=== PATIENT | male | born 1995 | race Caucasian/White ===

== ENCOUNTER 2019-03-03 11:22 | Emergency (ER) | payer MEDICAID, OTHER ==
[~2019-03-03] VITALS: Ht 175.3 cm; Wt 74.1 kg
[2019-03-03 11:32] VITALS: BP 136/64; Ht 175.3 cm; Wt 74.1 kg
[2019-03-03] MEDS ORDERED: ACETAMINOPHEN 500 MG TAB PO STA (12:37)
[2019-03-03] MEDS ORDERED: IBUP800T48 PO (14:11)
[2019-03-03] MEDS ORDERED: BUTA1CAP38 PO (14:11)
[2019-03-03] MEDS ORDERED: ONDA4TAB14 PO (14:13)
--- NOTE | 2019-03-03 14:17 | ERD ---
ER Documentation Chief Complaint Chief Complaint "THIS IS MY 3RD MIGRAINE IN 12 HOURS" - HX MIGRAINE HEADACHE HPI This is a 23-year-old male patient who presents to the emergency room with complaint of third migraine in 12 hours. Patient states he has history of migraines he gets a migraine headache about once per year. Describes pain as originating in the back of his right neck moving superiorly up right neck and head into his right eye with a sharp pain in the right eye, increased tearing, no nausea, no blurred vision, no paresthesia. States this headache is very similar to headaches he has had in the past. Patient has been taking Advil without relief. Patient smokes cigarettes, drinks alcohol. No chronic medical problems. ROS All systems reviewed and are negative except as per history of present illness. Medications Home Meds Active Scripts Ondansetron (Ondansetron Odt) 4 Mg Tab.rapdis, 4 MG PO Q6H PRN for NAUSEA AND/OR VOMITING, #10 TAB Prov:AASHISH KUMAR NP 03/03/19 Lyhxzsiclb-Fswvzmmdnwpoi-Zahqjggj* (Fioricet*) 50-300-40 Mg Capsule, 1 CAP PO Q4H PRN for HEADACHE for 10 Days, #20 CAP Prov:AASHISH KUMAR NP 03/03/19 Ibuprofen* (Motrin*) 800 Mg Tab, 800 MG PO Q6 for headache, #30 TAB Prov:AASHISH KUMAR NP 03/03/19 Allergies Allergies: Coded Allergies: No Known Allergy (Unverified , 10/14/13) PMhx/Soc Hx Respiratory Disorders: Yes (asthma) Hx Alcohol Use: No Hx Substance Use: No Hx Tobacco Use: No Smoking Status: Never smoker FmHx Family History: No diabetes, No coronary disease, No other Physical Exam Vitals Vital Signs Date Temp Pulse Resp B/P (MAP) Pulse Ox O2 O2 Flow FiO2 Time Delivery Rate 03/03/19 15.0 100 18:07 03/03/19 97.1 65 18 100 Room Air 14:19 03/03/19 97.1 73 16 136/64 99 11:32 (88) Physical Exam Const: No acute distress Head: No hematoma, no abrasions, no crepitus Eyes: Normal Conjunctiva. PERRL, EOMI ENT: Normal External Ears, Nose and Mouth. Pharynx pink, moist, no oral injury. Neck: Full range of motion. No meningismus. No cervical spinal tenderness. No lymphadenopathy Resp: Clear to auscultation bilaterally, no rales, rhonchi. Chest rise equal bilaterally. Cardio: Regular rate and rhythm, no murmurs Abd: Soft, non tender, non distended. Normal bowel sounds. No bruising. Skin: No petechiae or rashes, no abrasions, no hematomas. 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 Patient reported improvement in pain. MDM: This is a 23-year-old male patient who presents emergency room with complaint of symptoms of cluster type headache. Patient states this headache is similar to headaches he has had in the past. Patient was treated with Tylenol and oxygen therapy with 100% resolution of symptoms. Patient was instructed on increasing hydration, eliminating alcohol and smoking cessation. Patient was instructed on red flags and signs and symptoms of worsening of condition and when to return to the emergency room for emergent medical attention. Patient was instructed to follow-up with his primary care provider for possible referral to neurology for further evaluation of headaches and medication management. Patient was instructed on use of NSAIDs including Tylenol and ibuprofen and provided with prescription for Fioricet as abortive treatment. The patient was well-appearing with VSS and without neurological deficits at time of reevaluation and discharge. Clinical and diagnostic exam not suggestive of infection, intracranial process, SAH, SDH, neoplasm, meningitis, encephalitis, aneurysm, thrombus, temporal arteritis, sinusitis. The patient has been provided with instructions on self-care including use of analgesia, reducing triggers, and need for close follow-up with primary care physician within 2-4 days for reevaluation. DISPOSITION and PLAN: RX: Tylenol, Ibuprofen, Fioricet The patient has been discharge home to follow-up with community physician. Departure Diagnosis: Primary Impression: Migraine-cluster headache syndrome Condition: Stable Patient Instructions: Migraines and Cluster Headaches Referrals: COMMUNITY CLINICS YOU HAVE RECEIVED A MEDICAL SCREENING EXAM AND THE RESULTS INDICATE THAT YOU DO NOT HAVE A CONDITION THAT REQUIRES URGENT TREATMENT IN THE EMERGENCY DEPARTMENT. FURTHER EVALUATION AND TREATMENT OF YOUR CONDITION CAN WAIT UNTIL YOU ARE SEEN IN YOUR DOCTORS OFFICE WITHIN THE NEXT 1-2 DAYS. IT IS YOUR RESPONSIBILITY TO MAKE AN APPOINTMENT FOR FOLOW-UP CARE. IF YOU HAVE A PRIMARY DOCTOR --you should call your primary doctor and schedule an appointment IF YOU DO NOT HAVE A PRIMARY DOCTOR YOU CAN CALL OUR PHYSICIAN REFERRAL HOTLINE AT IF YOU CAN NOT AFFORD TO SEE A PHYSICIAN YOU CAN CHOSE FROM THE FOLLOWING [facility] CL[facility]ICS [facility] [address]. [facility] [address] [facility] [facility] [address] [facility] [address] [facility] [address] [facility] [facility]. [address] Additional Instructions: Thank you very much for allowing us to participate in your care. Your health and safety is our top priority at [facility]. Call your primary care doctor TOMORROW for an appointment during the next 2-4 days and bring all the information and medications prescribed. Have prescriptions filled and follow precisely the directions on the label. If the symptoms get worse and your provider is unavailable, return to the Em ergency Department immediately. AT ONSET OF HEADACHE USE IBUPROFEN, USE FIORICET ONLY NEEDED YOU MAY TRY SUPPLEMENTING MAGNESIUM 500 MG/DAY TO HELP PREVENT MIGRAINE HEADACHES STAY WELL-HYDRATED 1 TO 2 L/DAY STOP SMOKING REDUCE ALCOHOL CONSUMPTION AVOID MIGRAINE TRIGGERS RETURN TO THE EMERGENCY ROOM WITH CHANGE IN CHARACTER OR WORSENING OF YOUR HEADACHE AASHISH KUMAR NP Mar 03, 2019 14:17
[2019-03-03 14:19] VITALS: PULSE 65; RESP 18
== END 2019-03-03 14:20 | disposition home or self-care (01) ==
LOC: FTE 11:22
DX: G43.909 Migraine, unspecified, not intractable, without status migrainosus (principal); G44.009 Cluster headache syndrome, unspecified, not intractable; J45.909 Unspecified asthma, uncomplicated
CPT/HCPCS: Z7502; Z7610; 99283